=== PATIENT | female | born 2000 | race Hispanic/Latino ===

== ENCOUNTER 2022-09-15 14:27 | Emergency (ER) | payer BC, MEDICAID ==
[~2022-09-15] VITALS: Ht 149.9 cm; Wt 89.8 kg
[2022-09-15 14:59] VITALS: O2SAT 98
[2022-09-15 15:00] VITALS: BP 138/96; PULSE 75; RESP 18
[2022-09-15] MEDS ORDERED: ACETAMINOPHEN 500 MG TABLET PO ONE (16:00)
== END 2022-09-15 16:03 | disposition home or self-care (01) ==
LOC: EDH 14:27
DX: R51.9 Headache, unspecified (principal)
CPT/HCPCS: 99282